=== PATIENT | male | born 1985 | race Caucasian/White ===

== ENCOUNTER 2018-09-25 12:43 | Emergency (ER) | payer OTHER ==
[~2018-09-25] VITALS: Ht 172.7 cm; Wt 147.7 kg
[~2018-09-25 12:43] MED LIST: NO HOME MEDICATIONS; ZITHROMAX Z PA250 MG PO
[2018-09-25] MEDS ORDERED: NORCO 10-325 T1 EACH PO (14:00)
[2018-09-25] MEDS ORDERED: CYCLOBENZAPRINE10 M1 PO (14:01)
[2018-09-25] MEDS ORDERED: MEDROL DOSEPAK4 MG PO (14:02)
[2018-09-25 14:12] VITALS: BP 158/95
== END 2018-09-25 14:12 | disposition home or self-care (01) ==
LOC: ED 12:43
DX: M54.5 Low back pain (principal); X50.0XXA Overexertion from strenuous movement or load, initial encounter
CPT/HCPCS: J1885